=== PATIENT | male | born 1995 | race Caucasian/White ===

== ENCOUNTER 2023-03-03 10:37 | Inpatient (IN) | payer MEDICAID, OTHER ==
[~2023-03-03] VITALS: Ht 175.3 cm; Wt 73.5 kg
[2023-03-03 11:27] LABS: Basophils # (auto) 0 10 ^3/uL (0-0.2); Basophils % (auto) 0.3 % (0.0-2.0); Eosinophils # (auto) 0.2 10 ^3/uL (0-0.8); Eosinophils % (auto) 1.7 % (0.0-7.0); Hematocrit 44.3 % (41.0-53.0); Hemoglobin 14.2 g/dL (13.5-17.5); Lymphocytes # (auto) 2.4 10 ^3/uL (0.4-5.4); Lymphocytes % (auto) 17.5 % (10.0-50.0); Mean Corpuscular Hemoglobin 25.9 pg (28.0-32.0); Mean Corpuscular Hgb Conc. 32.1 g/dL (32.0-36.0); Mean Corpuscular Volume 80.8 fL (80.0-100.0); Monocytes # (auto) 0.8 10 ^3/uL (0-1.3); Monocytes % (auto) 6.1 % (0.0-12.0); Neutrophils # (auto) 10.1 10 ^3/uL (1.6-8.6); Neutrophils % (auto) 74.4 % (37.0-80.0); Red Blood Cells 5.49 10^6/uL (4.5-5.90); Red Cell Distribution Width 14.1 % (11.8-14.3); White Blood Cell 13.6 10^3/uL (4.4-10.8)
[2023-03-03 12:00] LABS: Alanine Aminotransferase 13 U/L (7-40); Alkaline Phosphatase 99 U/L (46-116); Calcium 9.3 mg/dL (8.5-10.1); Carbon Dioxide 26.7 mmol/L (20-30); Chloride 104 mmol/L (98-107); Glucose 107 mg/dL (74-106); Potassium 3.9 mmol/L (3.5-5.1); Sodium 139 mmol/L (136-145)
[2023-03-03 12:01] LABS: Albumin 4.5 g/dL (3.2-4.8); Anion Gap 8.3 (5-15); Aspartate Aminotransferase 12 U/L (13-40); BUN/Creatinine Ratio 17.1 (10.0-20.0); Bilirubin, Total 0.5 mg/dL (0.2-1.0); Blood Urea Nitrogen 13 mg/dL (9-23); Total Protein 7.5 g/dL (5.7-8.2)
[2023-03-03 12:03] LABS: Urine Bacteria NONE SEEN /hpf (None Seen); Urine Blood Negative /uL (Negative); Urine Clarity Clear (Clear); Urine Color Yellow (Yellow); Urine Mucus FEW (None Seen); Urine Protein, UAD Negative (Negative); Urine Specific Gravity 1.025 (1.001-1.035); Urine Urobilinogen Normal (Negative); Urine WBC 2 /hpf (0 - 3)
[2023-03-03 12:16] LABS: Lipase 45 U/L (12-53)
[2023-03-03] MEDS ORDERED: MORPHINE SULFATE 4 MG/ML SYR/VIAL IV ONE (13:30)
[2023-03-03] MEDS ORDERED: ONDANSETRON HCL 4 MG/2 ML VIAL IV ONE (13:30)
[2023-03-03] MEDS ORDERED: ONDANSETRON HCL 4 MG/2 ML VIAL IV PRN (14:00)
[2023-03-03] MEDS ORDERED: ACETAMINOPHEN 325 MG TAB PO PRN (14:00)
[2023-03-03] MEDS ORDERED: DOCUSATE SOD 100 MG CAP PO PRN (14:00)
[2023-03-03 15:12] LABS: INR 1.04 (0.9-1.15); Partial Thromboplastin Time 27.4 SEC (24.5-34.5); Prothrombin Time 10.9 sec (9.3-11.8)
[2023-03-03 17:10] VITALS: O2SAT 98
[2023-03-03] MEDS: HYDROcodone-ACET 5/325MG TAB PO PRN (20:25)
[2023-03-04] VITALS (7 sets, daily range): BP systolic 106–130; BP diastolic 66–81; PULSE 66–89; RESP 16–20; TEMP 98.1–98.8; O2SAT 94–98
[2023-03-04] MEDS: HYDROcodone-ACET 5/325MG TAB PO PRN ×2 (04:37→09:00)
[2023-03-04 07:52] LABS: Basophils # (auto) 0 10 ^3/uL (0-0.2); Hemoglobin 14.4 g/dL (13.5-17.5); Monocytes # (auto) 0.9 10 ^3/uL (0-1.3); Nucleated Red Blood Cells % 0.1 %; White Blood Cell 8.8 10^3/uL (4.4-10.8)
[2023-03-04 07:55] LABS: Basophils % (auto) 0.5 % (0.0-2.0); Eosinophils # (auto) 0.2 10 ^3/uL (0-0.8); Eosinophils % (auto) 2.6 % (0.0-7.0); Hematocrit 44.1 % (41.0-53.0); Lymphocytes # (auto) 1.6 10 ^3/uL (0.4-5.4); Lymphocytes % (auto) 18.5 % (10.0-50.0); Mean Corpuscular Hemoglobin 26.3 pg (28.0-32.0); Mean Corpuscular Hgb Conc. 32.7 g/dL (32.0-36.0); Mean Corpuscular Volume 80.3 fL (80.0-100.0); Neutrophils % (auto) 68.4 % (37.0-80.0); Red Blood Cells 5.49 10^6/uL (4.5-5.90)
[2023-03-04 08:19] LABS: Alanine Aminotransferase 12 U/L (7-40); Albumin 4.2 g/dL (3.2-4.8); Alkaline Phosphatase 94 U/L (46-116); Anion Gap 4.6 (5-15); Aspartate Aminotransferase 12 U/L (13-40); BUN/Creatinine Ratio 11.5 (10.0-20.0); Blood Urea Nitrogen 11 mg/dL (9-23); Calcium 9.4 mg/dL (8.5-10.1); Carbon Dioxide 29.4 mmol/L (20-30); Chloride 104 mmol/L (98-107); Glucose 101 mg/dL (74-106); Potassium 4.7 mmol/L (3.5-5.1); Sodium 138 mmol/L (136-145)
[2023-03-04 08:20] LABS: Bilirubin, Total 0.9 mg/dL (0.2-1.0); Total Protein 7.2 g/dL (5.7-8.2)
[2023-03-04] MEDS: MORPHINE SULFATE INJ 2 MG/ml SYRG IV PRN (19:43)
[2023-03-05] VITALS (8 sets, daily range): BP systolic 114–132; BP diastolic 55–79; PULSE 80–92; RESP 16–18; TEMP 98.1–98.5; O2SAT 96–99
[2023-03-05] MEDS ORDERED: PROPOFOL 10 MG/ML 20 ML IV ONE (10:37)
[2023-03-05] MEDS ORDERED: DexAMETHasone SOD PHOS 10MG/1ML VIAL INJ ONE (10:37)
[2023-03-05] MEDS ORDERED: fentaNYL CITRATE 100 MCG/2 ML VL ONE (10:37)
[2023-03-05] MEDS ORDERED: KETOROLAC TROMETH 30 MG/ML 1ML VIAL ONE (10:37)
[2023-03-05] MEDS ORDERED: HYDROmorphone HCL 2 MG/ML VL/or syr ONE (10:37)
[2023-03-05] MEDS ORDERED: ONDANSETRON HCL 4 MG/2 ML VIAL ONE (10:37)
[2023-03-05] MEDS ORDERED: GLYCOPYRROLATE 0.2 MG/ML 1ML VIAL ONE (10:37)
[2023-03-05] MEDS ORDERED: MIDAZOLAM HCL 2MG/2ML 2ml VIAL (1mg/ml) ONE (10:37)
[2023-03-05] MEDS ORDERED: ceFAZolin 1GM/50ML 100 ML IV ONE (10:40)
[2023-03-05] MEDS ORDERED: LIDOCAINE 2% (LOCAL ANESTH.) PF 5ml SDV ONE (11:12)
[2023-03-05] MEDS ORDERED: ONDANSETRON HCL 4 MG/2 ML VIAL IV PRN (11:45)
[2023-03-05] MEDS ORDERED: HYDROmorphone HCL 2 MG/ML VL/or syr IV PRN (11:45)
[2023-03-05] MEDS ORDERED: LABETALOL HCL 5 MG/ML 4ML SYRINGE IV PRN (11:45)
[2023-03-05] MEDS ORDERED: ePHEDrine SULFATE 50 MG/ML AMP IV PRN (11:45)
[2023-03-05] MEDS ORDERED: KETOROLAC TROMETH 30 MG/ML 1ML VIAL IV ONE (11:45)
[2023-03-05] MEDS ORDERED: MIDAZOLAM HCL 2MG/2ML 2ml VIAL (1mg/ml) IV PRN (11:45)
[2023-03-05] MEDS ORDERED: MORPHINE SULFATE 4 MG/ML SYR/VIAL IV PRN (11:45)
[2023-03-05] MEDS ORDERED: METOCLOPRAMIDE HCL 5MG/ml INJ 2ml VIAL IV PRN (11:45)
[2023-03-05] MEDS: ACETAMINOPHEN/CODEINE#3 (300/30mg) TAB PO PRN ×2 (15:59→20:58)
[2023-03-05] MEDS: D5W/SOD CHL 0.45%/KCL 20MEQ 1,000 ML IV SCH ×2 (16:00→22:15)
[2023-03-05] MEDS: ceFAZolin 1GM/50ML 50 ML IV SCH ×2 (16:00→22:33)
[2023-03-05] MEDS: MORPHINE SULFATE INJ 2 MG/ml SYRG IV PRN (18:43)
[2023-03-06] MEDS: MORPHINE SULFATE INJ 2 MG/ml SYRG IV PRN ×2 (00:08→07:45)
[2023-03-06 05:00] VITALS: BP 108/66; PULSE 87; RESP 20; O2SAT 95
[2023-03-06] MEDS: ceFAZolin 1GM/50ML 50 ML IV SCH (05:29)
[2023-03-06] MEDS: D5W/SOD CHL 0.45%/KCL 20MEQ 1,000 ML IV SCH (08:15)
[2023-03-06 09:32] VITALS: BP 124/76; PULSE 79; RESP 15; TEMP 98; O2SAT 98
[2023-03-06] MEDS ORDERED: TRAM50TA2 PO (10:31)
[2023-03-06] MEDS ORDERED: MET500T PO (10:31)
[2023-03-06] MEDS ORDERED: LEVO500T91 PO (10:31)
[2023-03-06 11:36] VITALS: BP 124/76; PULSE 79; RESP 15; TEMP 98; O2SAT 98
[2023-03-06 12:39] VITALS: BP 127/78; PULSE 79; RESP 17; TEMP 98; O2SAT 98
== END 2023-03-06 12:49 | disposition home or self-care (01) | DRG 228 ==
LOC: ER 10:37 → OVERFLOW 14:13 → EAST 03-04 04:02
PROVIDERS: ADMIT Nurse Practitioner Family; ATTEND Family Medicine
PROC: 0YQ60ZZ Repair Left Inguinal Region, Open Approach (ICD-10-PCS; principal; 2023-03-05 11:30)
DX: K40.90 Unilateral inguinal hernia, without obstruction or gangrene, not specified as recurrent (principal); B19.20 Unspecified viral hepatitis C without hepatic coma; D72.829 Elevated white blood cell count, unspecified; F17.210 Nicotine dependence, cigarettes, uncomplicated; Z83.3 Family history of diabetes mellitus; Z86.19 Personal history of other infectious and parasitic diseases; Z71.6 Tobacco abuse counseling
CPT/HCPCS: 36415; 71045; 74177; 80053; 81001; 83690; 85025; 85610; 85730; 88302; 96374; 96375; G0378; J0690; J1100; J1885; J2001; J2250; J2405; J2704